=== PATIENT | female | born 1970 | race Caucasian/White ===

== ENCOUNTER 2017-01-28 12:46 | Emergency (ER) | payer OTHER, MEDICAID ==
--- NOTE | 2017-01-28 13:31 | CPEKG ---
Heart Rate: 61 RR Interval: 984 P-R Interval: 176 QRSD Interval: 76 QT Interval: 432 QTC Interval: 435 P [place]: 16 QRS [place]: 51 T Wave [place]: 53 EKG Severity - NORMAL ECG - EKG Impression: SINUS RHYTHM Electronically Signed By: James Ureña 28-Jan-2017 15:37:23
[2017-01-28 13:53] LABS: % IMMATURE GRANULYOCYTES 0.2 % (0.0-1.1); ABSOLUTE IMMATURE GRANULOCYTES 0.01 10^3/uL (0.00-0.10); ADD DIFF? NO; ADD MORPH? NO; ADD SCAN? NO; ATYPICAL LYMPHOCYTE FLAG 10 (0-99); FRAGMENT RBC FLAG 0 (0-99); HEMATOCRIT 41.2 % (38.0-47.0); HEMOGLOBIN 13.8 g/dL (12.6-16.3); LEFT SHIFT FLG 0 (0-99); LIPEMIA HEMOLYSIS FLAG 80 (0-99); MEAN CELL HEMOGLOBIN 30.7 pg (27.9-34.1); MEAN CELL HEMOGLOBIN CONCENTR. 33.5 g/dL (32.4-36.7); MEAN CELL VOLUME 91.8 fL (81.5-99.8); MEAN PLATELET VOLUME 10.4 fL (8.7-11.7); PLATELET CLUMPS FLAG 10 (0-99); PLATELET COUNT 232 10^3/uL (150-400); RED BLOOD CELL COUNT 4.49 10^6/uL (4.18-5.33)
[2017-01-28 13:54] LABS: COLOR YELLOW; LEUKOCYTE ESTERASE,URINE NEGATIVE (NEGATIVE); NITRITE,URINE NEGATIVE (NEGATIVE)
[2017-01-28 14:06] LABS: ALANINE AMINOTRANSFERASE 27 IU/L (9-52); ALBUMIN 3.9 g/dL (3.5-5.0); ALKALINE PHOSPHATASE 65 IU/L (38-126); ANION GAP 13 mEq/L (8-16); ASPARTATE AMINOTRANSFERASE 32 IU/L (14-46); BILIRUBIN,TOTAL 0.3 mg/dL (0.1-1.4); CALCIUM 8.7 mg/dL (8.5-10.4); CARBON DIOXIDE 26 mEq/l (22-31); CHLORIDE 104 mEq/L (97-110); CREATININE 0.7 mg/dL (0.6-1.0); GLOMERULAR FILTRATION RATE > 60; GLUCOSE 61 mg/dL (70-100); SODIUM 143 mEq/L (134-144); TOTAL PROTEIN 7.1 g/dL (6.3-8.2)
[2017-01-28 14:17] LABS: TROPONIN I < 0.012 ng/mL (0-0.034)
[2017-01-28] MEDS ORDERED: HYOSCYAMINE SULFATE 0.125 MG TAB PO ONE (15:04)
[2017-01-28] MEDS ORDERED: MAG HYDROX/AL HYDROX/SIMETH 30 ML UDCUP PO ONE (15:04)
[2017-01-28] MEDS ORDERED: LIDOCAINE 2% VISCOUS 15 ML UDCUP PO ONE (15:04)
--- NOTE | 2017-01-28 15:08 | UCPHY ---
H & P Patient Type: Established Chief Complaint Nursing Narrative: c/o lower abd pain on and off for several months- last pm mid sternal pain cont today with Nauesa Time Seen by Provider: 01/28/17 13:36 HPI/ROS: This patient has epigastric pain. She describes the intensity is moderate. She states that is intermittent now for several months today she developed associated nausea for the 1st time the prompted her visit for further evaluation. She reports some fatigue associated with this. At times she has associated fleeting chest pain in the substernal location extends up from the epigastric location. Currently she has moderate epigastric discomfort. ROS: No fevers or chills. No other constitutional symptoms besides the fatigue. HEENT: No recent URI symptoms or other complaints. Pulmonary: No cough. No dyspnea. Cardiovascular: She reports no heart palpitations or lightheadedness. She has no lower extremity swelling. GI: No lower belly pain. Reports move since. Endocrine: No diaphoresis integumentary: No skin rash. 10 point ROS is otherwise negative. Source: Patient Exam Limitations: No limitations - Personal History LMP (Females 10-55): Hysterectomy Tetanus Vaccine Date: 2011 - Medical/Surgical History Hx Asthma: No Hx Chronic Respiratory Disease: No Hx Diabetes: No Hx Cardiac Disease: No Hx Renal Disease: No Hx Cirrhosis: No Hx Alcoholism: No Hx HIV/AIDS: No Hx Splenectomy or Spleen Trauma: No Other PMH: Hysterectomy, fibomyalgia, chronic fatigue, prolapsed bladder/uterus/ rectum, nephrostomy tube for kidney stones, tonsilectomy - Family History Significant Family History: Heart disease (Patient's sister had an TX at age 48) - Social History Smoking Status: Current every day smoker Alcohol Use: Rarely Drug Use: None Additional Social History: The patient just started working in the [employer] at [employer] [facility] [employer] [facility] - Physical Exam Exam: General Appearance: Alert, no distress. Eyes: Pupils equal and round no pallor or injection. ENT, Mouth: Mucous membranes moist. Respiratory: There are no retractions, lungs are clear to auscultation. Cardiovascular: Regular rate and rhythm. No murmur gallop rub. No peripheral edema. No JVD. Gastrointestinal: Normoactive, soft, mild epigastric tenderness with no guarding or rebound. Neurological: Alert with no deficits. Skin: Warm and dry, no rashes. Musculoskeletal: Neck is supple nontender. Extremities are symmetrical, full range of motion. Psychiatric: Mood and affect normal. DIFFERENTIAL DIAGNOSIS: After history and physical exam differential diagnosis was considered for gastritis, cholecystitis, hepatitis, coronary syndrome, [place] Constitutional: Initial Vital Signs Temperature (C) 36.6 C 01/28/17 13:01 Heart Rate 67 01/28/17 13:01 Respiratory Rate 18 01/28/17 13:01 Blood Pressure 128/59 H 01/28/17 13:01 O2 Sat (%) 95 01/28/17 13:01 O2 Delivery Mode Room Air Allergies/Adverse Reactions: prochlorperazine edisylate [From Compazine] Allergy (Severe, Verified 11/26/13 15:25) Other-Enter Comments prochlorperazine maleate [From Compazine] Allergy (Severe, Verified 11/26/13 15: 25) Other-Enter Comments levofloxacin [From Levaquin] Allergy (Mild, Verified 11/26/13 15:25) Vomiting Home Medications: Medication Instructions Recorded Dextroamphetamine/Amphetamine 30 mg PO DAILY 07/28/13 [Adderall 30 mg Tablet] Herbals/Supplements -Info Only 1 tab PO DAILY 07/28/13 Levothyroxine [Synthroid 150 mcg 150 mcg PO DAILY06 07/28/13 (RX)] Pantoprazole Sodium [Protonix 40mg 40 mg PO DAILY #30 tab 01/28/17 (RX)] Medical Decision Making - Diagnostics EKG Interpretation: 12 lead EKG performed shortly after arrival indication epigastric pain rule out [place] Performed at 1:29 p.m. Sinus rhythm Intervals: Normal ST segments: Normal Overall assessment: Normal EKG ED Course/Re-evaluation: Patient is treated with a GI cocktail with relief. Review of labs reveals normal CBC, comp metabolic panel, troponin, normal D- dimer Discussion: Patient with risk factor for coronary disease of premature coronary artery disease in her sister and smoking with epigastric pain, normal EKG and troponin. Think that her symptoms are from gastritis after workup here today. Do not think she has PE, coronary syndrome, other concerning findings. I counseled regarding gastritis. Will start her on Protonix acid una. She understands the need to go the emergency department if she develops any significant recurrence or worsening symptoms despite the treatment plan. - Data Points Laboratory Results: Laboratory Results 01/28/17 13:15 01/28/17 13:15 Medications Given: Discontinued Medications Al Hydroxide/Mg Hydroxide (Maalox Susp) 30 ml PO EDNOW ONE Stop: 01/28/17 15:05 Last Admin: 01/28/17 15:10 Dose: 30 ml Hyoscyamine Sulfate (Levsin, Hyomax-Sl) 0.125 mg PO EDNOW ONE Stop: 01/28/17 15:05 Last Admin: 01/28/17 15:10 Dose: 0.125 mg Lidocaine (Lidocaine 2% Viscous) 5 ml PO EDNOW ONE Stop: 01/28/17 15:05 Last Admin: 01/28/17 15:10 Dose: 5 ml Departure - Departure Disposition: Home, Routine, Self-Care Clinical Impression: Gastritis Qualifiers: Gastritis type: unspecified gastritis Chronicity: acute Gastritis bleeding: without bleeding Qualified Code(s): K29.00 - Acute gastritis without bleeding Condition: Good Instructions: Gastritis (ED) Additional Instructions: Diagnosis: Gastritis Plan: Protonix acid una or Prilosec 40 mg a day [place] diet until he feel improved Maalox in addition for symptoms if needed Return for any significant worsening despite treatment plan Make a follow-up appointment with primary care physician for 5-10 days for recheck. Referrals: JONES JALLOH,. [Primary Care Provider] - As per Instructions Stand Alone Forms: Work Excuse Prescriptions: Pantoprazole Sodium [Protonix 40mg (RX)] 40 mg PO DAILY #30 tab - PQRS PQRS Measurement: NA
[2017-01-28 15:13] VITALS: BP 112/55; PULSE 61; RESP 16; TEMP 97.9; O2SAT 96
== END 2017-01-28 15:19 | disposition home or self-care (01) ==
LOC: CED 12:46
DX: K29.70 Gastritis, unspecified, without bleeding (principal)
CPT/HCPCS: 93005; G0463; 80053-PO; 81003-PO; 83690-PO; 84484-PO; 85025-PO; 85378-PO; 93010-PO; 99215-PO